=== PATIENT | female | born 1945 | race Caucasian/White ===

== ENCOUNTER 2020-01-19 12:07 | Day surgery (SDC) | payer MEDICARE, OTHER ==
[2020-01-19] VITALS (7 sets, daily range): BP systolic 107–139; BP diastolic 54–70
[~2020-01-19] VITALS: Ht 152.4 cm; Wt 53.0 kg
[2020-01-19] MEDS ORDERED: ATOR20TA66 PO (12:31)
[2020-01-19] MEDS ORDERED: ESTR10TA9 VG (12:31)
[2020-01-19] MEDS ORDERED: OMEP20TA23 PO (12:33)
[2020-01-19] MEDS ORDERED: CRAN500C4 PO (12:33)
[2020-01-19] MEDS ORDERED: CYCL1DRO (12:33)
[2020-01-19] MEDS ORDERED: OLIV250C PO (12:33)
[2020-01-19 12:48] LABS: BASOPHILS % (AUTO) 0.5 % (0-1); EOSINOPHILS % (AUTO) 0.5 % (0-6); HEMATOCRIT 38.4 % (35.0-45.0); HEMOGLOBIN 12.4 g/dl (12.0-16.0); LYMPHOCYTES % (AUTO) 32.4 % (21-51); MEAN CORPUSCULAR HEMOGLOBIN 28.4 PG (27.0-31.0); MEAN CORPUSCULAR HGB CONC 32.3 g/dL (33.0-36.5); MEAN CORPUSCULAR VOLUME 88.1 FL (78-98); MEAN PLATELET VOLUME 7.3 FL (7.4-10.4); MONOCYTES # (AUTO) 0.5 X10'3 (0-0.9); MONOCYTES % (AUTO) 8.8 % (2-12); NEUTROPHILS # (AUTO) 3.6 X10'3 (1.8-7.7); NEUTROPHILS % (AUTO) 57.8 % (42-75); PLATELET COUNT 264 X10'3 (140-440); RED BLOOD COUNT 4.36 X10'6 (4.20-5.60); RED CELL DISTRIBUTION WIDTH 14.1 % (11.5-14.5); WHITE BLOOD COUNT 6.2 X10'3 (4.5-11.0)
[2020-01-19] MEDS ORDERED: normal saline 1000ml 1,000 ML IV SCH (12:50)
[2020-01-19 12:55] LABS: ALBUMIN 4.2 G/DL (3.4-5.0); ANION GAP 9 (8-16); BLOOD UREA NITROGEN 11 MG/DL (7-18); CALCIUM 8.9 MG/DL (8.5-10.1); CHLORIDE 104 MMOL/L (99-107); CREATININE 0.58 MG/DL (0.40-0.90); GLUCOSE 86 MG/DL (70-104); SODIUM 141 MMOL/L (135-145); eGFR > 90 ML/MIN
[2020-01-19] MEDS ORDERED: clindamycin 600mg/D5W 50ml 50 ML IV ONE (12:55)
[2020-01-19] MEDS ORDERED: LIDOcaine 1% W/epiNEPHrine 1:100,000 20ml vial ONE (12:56)
[2020-01-19] MEDS ORDERED: midazolam 2 mg/2 ml injection ONE ×2 (12:56→13:34)
[2020-01-19] MEDS ORDERED: fentaNYL/PF 50MCG/1 ML 2ML syringe ONE (12:56)
[2020-01-19] MEDS ORDERED: clindamycin phosphate 150mg/ml inj. ONE (12:56)
[2020-01-19] MEDS ORDERED: vancomycin 1,000mg inj ONE (13:01)
== END 2020-01-19 16:15 | disposition home or self-care (01) ==
LOC: SSTAY O 12:07
PROVIDERS: ATTEND Internal Medicine Cardiovascular Disease
DX: I49.5 Sick sinus syndrome (principal); I44.1 Atrioventricular block, second degree; I48.91 Unspecified atrial fibrillation; I49.3 Ventricular premature depolarization; Z88.0 Allergy status to penicillin; Z98.890 Other specified postprocedural states; Z79.899 Other long term (current) drug therapy; Z79.82 Long term (current) use of aspirin
CPT/HCPCS: 33208; 36415; 71045; 80048; 83735; 85025; 85610; 99152; 99153; C1785; C1894; C1898; J2250; J3010; J3370; J3490; 93005; A4565; A4620